=== PATIENT | female | born 2000 | race Caucasian/White ===

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

== ENCOUNTER → 2019-12-18 | Outpatient (CLI) | payer BC ==
[~2019-12-18] MED LIST: NORCO 325 MG-51 TAB PO
== END ==
LOC: ZCOL.LAB 17:10
DX: Z20.828 Contact with and (suspected) exposure to other viral communicable diseases (principal)